=== PATIENT | female | born 1935 | race Caucasian/White ===

== ENCOUNTER 2020-07-18 11:07 | Emergency (ER) | payer OTHER, SELFPAY ==
--- NOTE | 2020-07-18 11:11 | ED.GENADULT ---
HPI - General Adult General Chief complaint: Eye Problems Stated complaint: Eye Pain Time Seen by Provider: 07/18/20 11:11 Source: patient Mode of arrival: ambulatory Limitations: no limitations History of Present Illness HPI narrative: 84-year-old female patient presents to the [facility] accompanied by her daughter with complaints of left eye pain. Patient states that she woke up this morning and states she has had some irritation to the left eye. Patient does have history of cataract to the left eye. Patient states she feels like something is in her eye and her eyes little sensitive to the light. Denies any itchiness. Denies any recent injury to the eye that she is aware of. Patient denies any headache. Denies any pain behind the eye. Related Data Home Medications Medication Instructions Recorded Confirmed apixaban [Eliquis] 5 mg PO BID 07/18/20 07/18/20 aspirin 81 mg PO DAILY 07/18/20 07/18/20 atorvastatin 10 mg PO DAILY 07/18/20 07/18/20 furosemide 20 mg PO DAILY 07/18/20 07/18/20 gabapentin 100 mg PO BID 07/18/20 07/18/20 Allergies Allergy/AdvReac Type Severity Reaction Status Date / Time No Known Allergies Allergy Unverified 04/13/18 04:04 Review of Systems Review of Systems: Narrative: CONSTITUTIONAL: Denies fever, chills, or sweats. EYES: Denies visual changes, positive left eye redness and irritation, denies discharge. ENT: Denies rhinorrhea, congestion, sore throat, or otalgia. CARDIOVASCULAR: Denies chest pain, palpitations, or edema. RESPIRATORY: Denies cough or dyspnea. GASTROINTESTINAL: Denies abdominal pain, nausea, vomiting, or diarrhea. GENITOURINARY: Denies dysuria or hematuria. SKIN: Denies rash or itching. MUSCULOSKELETAL: Denies back pain, joint pain, or myalgia. NEUROLOGIC: Denies headache, numbness, or weakness. PSYCHIATRIC: Denies anxiety or depression. [facility] Past Medical History Medical History (Updated 07/18/20 @ 11:51 by KELSEY Matias) Arthritis Cataracts, bilateral Congestive heart failure Constipation Coronary artery disease CVA (cerebral vascular accident) Dysphagia Full dentures Hypercholesteremia Hypertension IBS (irritable bowel syndrome) Myocardial infarction Urinary tract infection Surgical History Surgical History (Updated 07/18/20 @ 11:14 by KELSEY Matias) H/O cardiac catheterization H/O: hysterectomy Hx of CABG Social History Social History (Updated 07/18/20 @ 11:14 by KELSEY Matias) Smoking status: Former smoker Gender identity (if verbalized by the patient): Female Comments At the time of my signature I agree with nursing past medical history, surgical, social, and family history. There is no relevant family history pertinent to the presenting complaint. Exam Narrative: Exam Narrative: GENERAL: Well-appearing, well-nourished, and in no acute distress. HEAD: Normocephalic, atraumatic. EYES: PERRLA and EOM intact without limitation or complaint of pain, no periorbital soft tissue swelling ,no erythema, warmth or tenderness noted, no obvious deformity. No crusting or swelling.clear tearing or draining.positive photophobia to left eye. No nystagmus No FB or lesion on lid eversion. Corneas grossly clear, no obvious FB or hyphens/hypopyon. injection to sclera of left eye. Lids and lashes clear. ENT: Nares clear, no rhinorrhea or epistaxis. Mucous membranes moist. NECK: Supple. No lymphadenopathy CHEST: Clear to auscultation. No respiratory distress. HEART: Regular rate and rhythm. No murmur heard. Normal peripheral pulses. ABDOMEN: Soft, nontender, nondistended, normal active bowel sounds. EXTREMITIES: Normal range of motion. No edema. SKIN: Warm, dry, no rash. NEURO: No focal deficits. Alert and oriented x3. Course Vital Signs Vital signs: Vital Signs Temperature 36.6 C 07/18/20 11:39 Pulse Rate 77 07/18/20 11:39 Respiratory Rate 20 07/18/20 11:39 Blood Pressure 156/104 H 07/18/20 11:39 Pulse Oximetry 97
[2020-07-18 11:39] VITALS: BP 156/104; PULSE 77; RESP 20; TEMP 36.6; O2SAT 97
[2020-07-18] MEDS: TETRACAINE HCL 0.5% OPHTH SOLN 4 ML BTL 1 DROP LEFT EYE (11:45)
[2020-07-18] MEDS: FLUORESCEIN SOD 1 MG/STRIP LEFT EYE (11:46)
[2020-07-18] MEDS: DACRIOSE EYE IRRIGATION 118 ML BOTTLE 20 ML LEFT EYE (11:50)
== END 2020-07-18 12:09 | disposition home or self-care (01) ==
PROVIDERS: Emergency Provider Nurse Practitioner Family; PCP Family Medicine Adolescent Medicine
DX: S05.02XA Injury of conjunctiva and corneal abrasion without foreign body, left eye, initial encounter (principal); X58.XXXA Exposure to other specified factors, initial encounter; H26.9 Unspecified cataract; M19.90 Unspecified osteoarthritis, unspecified site; I11.0 Hypertensive heart disease with heart failure; I50.9 Heart failure, unspecified; I25.10 Atherosclerotic heart disease of native coronary artery without angina pectoris; Z86.73 Personal history of transient ischemic attack (TIA), and cerebral infarction without residual deficits; E78.00 Pure hypercholesterolemia, unspecified; I25.2 Old myocardial infarction; Z95.1 Presence of aortocoronary bypass graft; Z87.891 Personal history of nicotine dependence
CPT/HCPCS: 99213; A9270; G0463

== ENCOUNTER 2021-01-18 12:29 | Emergency (ER) | payer OTHER, SELFPAY ==
--- NOTE | ~2021-01-18 | CT_ITS ---
EXAMINATION: CT brain wo con DATE: 01/18/2021 15:09 INDICATION: Head injury. TECHNIQUE: Computed tomography (CT) of the head was performed without intravenous contrast. The mA wa s adjusted according to patient size. Iterative reconstruction technique was employed. The dose-lengt h product was 605.33 mGy-cm. COMPARISON: None FINDINGS: There are old infarcts involving the right cerebellum, right middle cerebellar peduncle, an d dwayne. There are scattered areas of low attenuation in the cerebral white matter and bilateral basal ganglia. There is no intracranial hemorrhage, acute infarction, or abnormal intracranial mass lesion . The ventricles are normal in size. There are likely changes of right ocular lens replacement surger y. The paranasal sinuses are clear. There is a small left mastoid effusion. IMPRESSION: 1. 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 2. Moderate nonspecific cerebral white matter disease and disease of the bilateral basal ganglia, whi ch likely represents chronic small vessel ischemic disease. Reviewed, dictated and finalized at location A. IMPRESSION: 1. Old infarcts involving the right cerebellum, right middle cerebellar peduncl e, and dwayne. 2. Moderate nonspecific cerebral white matter disease and disease of the bilate ral basal ganglia, which likely represents chronic small vessel ischemic diseas e.
[2021-01-18 12:49] VITALS: BP 140/102; PULSE 94; RESP 18; TEMP 37.3; O2SAT 97
[2021-01-18 15:53] LABS: Basophils Percent Auto 0.2 % (0.2-1.2); Eosinophils Percent Auto 0.3 % (0-4.4); Hemoglobin 13.2 g/dL (12.0-15.0); Immature Granulocyte Absolute 0.02 K/mm3 (0.00-0.031); Immature Granulocyte Percent A 0.2 % (0-0.5); Lymphocytes Percent Auto 27.1 % (18.3-44.2); Mean Corpuscular Hemoglobin 29.9 pg (26-34); Mean Corpuscular Volume 90.5 fl (80-100); Mean Platelet Volume 10.2 fl (7.4-10.4); Monocytes Absolute Auto 0.7 K/mm3 (0.1-0.6); Monocytes Percent Auto 7.5 % (2.6-8.5); Neutrophils Absolute Auto 6.2 K/mm3 (1.3-6.7); Neutrophils Percent Auto 64.7 % (45.5-73.1); Platelet Count Result 215 k/mm3 (150-375); Red Blood Count 4.42 M/mm3 (4.2-5.4); Red Cell Distribution Width 14.3 % (11.5-14.5); White Blood Count 9.6 K/mm3 (4.5-10.0)
[2021-01-18 15:58] LABS: Add Urine Microscopic? YES; Appearance Urine Clear (Clear); Bacteria Urine Trace /hpf; Bilirubin Urine Negative (Negative); Blood Urine 1+ (Negative); Budding Yeast Urine Present /hpf; Color Urine Yellow (Yellow); Glucose Urine UA Negative (Negative); Ketones Urine Negative (Negative); Leukocyte Esterase Ur Trace LEU/UL (Negative); Mucus Urine Rare /lpf; Nitrate Urine Positive (Negative); Protein Urine 1+ mg/dL (Negative); Specific Grav Ur 1.019 (1.001-1.035); Squamous Epithelial Cell Urine Rare /hpf (Few); Urobilinogen Urine Negative mg/dL (<2.0)
[2021-01-18 16:00] VITALS: BP 125/57; PULSE 71; RESP 15; O2SAT 98
[2021-01-18 16:04] LABS: Anion Gap 7 mmol/L (8-16); Blood Urea Nitrogen 27 mg/dL (7-17); Calcium 9.3 mg/dL (8.4-10.2); Carbon Dioxide 25 mmol/L (22-30); Chloride 105 mmol/L (98-107); Estimated Glomerular Filt Rate > 60; Glucose 102 mg/dL (65-110); Potassium 4.7 mmol/L (3.4-5.0); Sodium 137 mmol/L (137-145)
--- NOTE | 2021-01-18 16:09 | ED.GENADULT ---
HPI - General Adult General Chief complaint: Fall Stated complaint: fall head trauma Time Seen by Provider: 01/18/21 14:43 History of Present Illness HPI narrative: Patient is an 85-year-old female who is alert and oriented x2-3 presents ER status post fall. She cannot tell me how she fell but reports she struck her head. She is on a blood thinner. That is why the intermediate sent her here. She has no complaints of pain or dizziness or change in vision at this time. No visual evidence of trauma. Related Data Home Medications Medication Instructions Recorded Confirmed acetaminophen 01/18/21 apixaban 5 mg PO BID 01/18/21 01/18/21 aspirin 81 mg PO DAILY 01/18/21 01/18/21 atorvastatin 80 mg PO HS 01/18/21 01/18/21 carboxymethylcellulose sodium 1 drp EACH EYE 4-6XD PRN 01/18/21 01/18/21 cephalexin 500 mg PO Q12H 01/18/21 01/18/21 ciprofloxacin HCl 500 mg PO Q12H 01/18/21 01/18/21 diphenhydramine HCl 50 mg PO HS 01/18/21 01/18/21 furosemide 20 mg PO DAILY 01/18/21 01/18/21 gabapentin 01/18/21 polyethylene glycol 3350 17 g PO DAILY 01/18/21 01/18/21 Allergies Allergy/AdvReac Type Severity Reaction Status Date / Time No Known Allergies Allergy Verified 01/18/21 12:55 Review of Systems Review of Systems: ROS unobtainable: Yes unobtainable due to mental status PMFSH Past Medical History Medical History (Updated 01/18/21 @ 16:16 by Jesse Harding MD) Hypercholesterolemia Neurogenic bladder Social History Social History (Updated 01/18/21 @ 16:12 by Jesse Harding MD) Social History: Lives at [facility]. Gender identity (if verbalized by the patient): Female Exam Narrative: GENERAL: Well-appearing, well-nourished, and in no acute distress. HEAD: Normocephalic, atraumatic. EYES: PERRL and EOMI. CHEST: Clear to auscultation. No respiratory distress. HEART: Regular rate and rhythm. Normal peripheral pulses. ABDOMEN: Soft, nontender, nondistended. EXTREMITIES: Normal range of motion. No edema. SKIN: Warm, dry, no rash. NEURO: Alert and oriented x2-3. PSYCH: Normal mood and affect. Course Course Emergency Course: Patient resting comfortably. No evidence of injury. Chart review shows patient is taking antibiotics in the intermediate. Vital Signs Vital signs: Vital Signs Temperature 99.1 F 01/18/21 12:49 Pulse Rate 94 01/18/21 12:49 Respiratory Rate 18 01/18/21 12:49 Blood Pressure 140/102 H 01/18/21 12:49 Pulse Oximetry 97 01/18/21 12:49 Temperature 99.1 F 01/18/21 12:49 Pulse Rate 94 01/18/21 12:49 Respiratory Rate 18 01/18/21 12:49 Blood Pressure 140/102 H 01/18/21 12:49 Pulse Oximetry 97 01/18/21 12:49 Medical Decision Making Vital Signs Vital Signs: Vital Signs Temperature 99.1 F 01/18/21 12:49 Pulse Rate 94 01/18/21 12:49 Respiratory Rate 18 01/18/21 12:49 Blood Pressure 140/102 H 01/18/21 12:49 Pulse Oximetry 97 01/18/21 12:49 Temperature 99.1 F 01/18/21 12:49 Pulse Rate 94 01/18/21 12:49 Respiratory Rate 18 01/18/21 12:49 Blood Pressure 140/102 H 01/18/21 12:49 Pulse Oximetry 97 01/18/21 12:49 Lab Data Result diagrams: 01/18/21 15:44 01/18/21 15:44 Labs: Lab Results 01/18/21 01/18/21 01/18/21 Range/Units 15:44 15:44 15:44 WBC 9.6 (4.5-10.0) K/mm3 RBC 4.42 (4.2-5.4) M/mm3 Hgb 13.2 (12.0-15.0) g/dL Hct 40.0 (37.0-47.0) % MCV 90.5 (80-100) fl MCH 29.9 (26-34) pg MCHC 33.0 (32-36) g/dl RDW 14.3 (11.5-14.5) % Plt Count 215 (150-375) k/mm3 MPV 10.2 (7.4-10.4) fl Immature Gran % (Auto) 0.2 (0-0.5) % Neut % (Auto) 64.7 (45.5-73.1) % Lymph % (Auto) 27.1 (18.3-44.2) % [place] % (Auto) 7.5 (2.6-8.5) % Eos % (Auto) 0.3 (0-4.4) % Baso % (Auto) 0.2 (0.2-1.2) % Lymph # (Auto) 2.60 (0.9-3.2) K/mm3 [place] # (Auto) 0.7 H (0.1-0.6) K/mm3 Eos # (Auto) 0.0 (0-0.3) K/m
== END 2021-01-18 17:22 ==
PROVIDERS: Emergency Provider Emergency Medicine; PCP Family Medicine Adolescent Medicine
DX: S09.90XA Unspecified injury of head, initial encounter (principal); W19.XXXA Unspecified fall, initial encounter; E78.5 Hyperlipidemia, unspecified
CPT/HCPCS: 36415; 70450; 80048; 81001; 85025; 99284

== ENCOUNTER 2022-10-29 15:57 | Outpatient (NON) | payer OTHER, SELFPAY ==
[2022-10-29 16:55] LABS: Uric Acid 9.2 mg/dL (2.5-7.5)
== END 2022-10-29 15:58 | disposition home or self-care (01) ==
LOC: HOME HLTH 15:58
PROVIDERS: PCP Family Medicine Adolescent Medicine; Visit Provider Family Medicine Adolescent Medicine
DX: M25.40 Effusion, unspecified joint (principal)
CPT/HCPCS: 84550